=== PATIENT | male | born 1965 | race Caucasian/White ===

== ENCOUNTER 2018-11-17 13:51 | Emergency (ER) | payer BC ==
[~2018-11-17] VITALS: Ht 188 cm; Wt 131.5 kg
[2018-11-17 14:28] LABS: ABSOLUTE BASOPHILS 0.1 thou/uL (0.0-0.2); ABSOLUTE EOSINOPHILS 0.2 thou/uL (0.0-0.7); ABSOLUTE LYMPHOCYTES 1.5 thou/uL (0.8-5.3); ABSOLUTE MONOCYTES 0.6 thou/uL (0.0-1.2); ABSOLUTE NEUTROPHILS 4.8 thou/uL (1.6-8.1); BASOPHILS 0.8 %; EOSINOPHILS 2.3 %; HEMATOCRIT 43.9 % (42.0-52.0); HEMOGLOBIN 15.4 gm/dL (14.0-18.0); LYMPHOCYTES 21.4 %; MCH 30.3 pg (26.0-34.0); MCHC 35.1 g/dL (28.0-37.0); MCV 86.2 fL (80.0-100.0); MONOCYTES 8.1 %; MPV 6.7 fl. (7.2-11.1); NUCLEATED RBCS 0 /100WBC; PLATELET COUNT* 241 thou/uL (150-400); POLYS 67.4 %; RBC 5.09 mil/uL (4.50-6.00); RDW-CV 13.2 % (10.5-14.5); WBC 7.2 thou/uL (4.0-11.0)
[2018-11-17 14:38] LABS: APTT 29.8 Seconds (25.0-31.3); PROTIME 10.2 Seconds (9.20-11.50)
[2018-11-17 14:41] LABS: ALBUMIN 3.8 g/dL (3.4-5.0); CALCIUM 9.3 mg/dL (8.5-10.1); POTASSIUM 3.9 mmol/L (3.5-5.1); TOTAL BILIRUBIN 0.7 mg/dL (<0.1-1.0); TOTAL PROTEIN 7.2 g/dL (6.4-8.2)
[2018-11-17] MEDS ORDERED: ROBAXIN500 MG PO (15:41)
[2018-11-17 15:53] VITALS: BP 147/86
== END 2018-11-17 15:54 | disposition home or self-care (01) ==
LOC: M.ERS 13:51
PROVIDERS: Nurse Practitioner Family
DX: S00.83XA Contusion of other part of head, initial encounter (principal); V59.49XA Driver of pick-up truck or van injured in collision with other motor vehicles in traffic accident, initial encounter; Y93.89 Activity, other specified; Y92.89 Other specified places as the place of occurrence of the external cause; Y99.8 Other external cause status

== ENCOUNTER → 2019-03-08 | Outpatient (CLI) | payer BC ==
[~2019-03-08] MED LIST: ROBAXIN500 MG PO
--- NOTE | 2019-03-08 16:51 | EXE ---
[place] [address] STRESS ECHOCARDIOGRAM Name: CHAD RINALDI Room: [facility]#: [id number] Admission: 03/08/19 Attend Phys: Jaky Khan DO Discharge: Date of : 61 Date of Service: 03/08/19 1650 Report #: [id number] THIS REPORT FOR: //name// APPROVED REPORT Study performed: 03/08/2019 15:03:22 Exam: Dobutamine Stress Echo Indication: Chest pain , Near Syncope Patient Location: Out-Patient Stress Nurse: Tomasa Chi RN Supervising Physician: Benjamin Jarrett MD Ht: 6 ft 2 in HR: 78 bpm BP: 124/87 mmHg Medical History Cardiac Risk Factors: FHX of CAD, Tobacco History (Former) Procedure The patient underwent a Pharmacological Stress Test using Dobutamine. Blood pressure, heart rate, and EKG were monitored. An Echocardiogram was performed by county program technician in four stages in quad fashion. At peak stress, four selected images were obtained and placed side by side with resting images for comparison. Echo Enhancing Agent Indication: Endocardial border delineation Agent(s) / Amount(s) Used: Optison 10 cc Stress Test Details Stress Test: Pharmacological Stress Test using Dobutamine. Reason for pharmacologic stress test: physical limitation. HR Resting HR: 78 bpm Max Heart Rate (APMHR): 165 bpm Max HR Achieved: 138 bpm Target HR (85% APMHR): 140 bpm % of APMHR: 83 Recovery HR: 92 bpm HR response to stress: Normal HR response to stress BP Resting BP: 124/87 mmHg Max BP: 185/82 [place] [address] STRESS ECHOCARDIOGRAM Name: CHAD RINALDI TAHMINA Room: [facility]#: [id number] Admission: 03/08/19 Attend Phys: Jaky Khan DO Discharge: Date of : 61 Date of Service: 03/08/19 1650 Report #: [id number] Recovery BP: 132/75 mmHg BP response to stress: Normal blood pressure response to stress. ECG Resting ECG: Sinus Rhythm Stress ECG: Sinus Tachycardia ST Change: None Arrhythmia: VPC's Recovery ECG: Sinus Rhythm Recovery ST Change: None Recovery Arrhythmia: None Clinical Reason for Termination: Completed protocol Patient tolerated dobutamine infusion without specific cardiac. Heart rate was achieved. Stress ECG Conclusion The baseline 12-lead EKG showed sinus rhythm without significant ST or T-wave abnormality. EKGs obtained during and post dobutamine infusion showed sinus rhythm and sinus tachycardia with no significant ST or T wave changes when compared to baseline. There were unifocal premature ventricular contractions noted. Pre-Stress Echo The resting Echocardiogram showed normal left ventricular contractility with an estimated Ejection Fraction of about 55-60%. The resting echocardiogram demonstrated normal wall motion in all wall segments. Post-Stress Echo The stress Echocardiogram showed normal left ventricular contractility with an estimated Ejection Fraction of about >70%. Compared to rest, there were no stress-induced wall motion abnormalities. Conclusion Clinical Response: Non-ischemic Stress ECG Response: Non-ischemic Stress Echo Images: Non-ischemic This dobutamine stress echocardiogram shows no EKG or echocardiographic evidence of stress-induced ischemia. Left ventricular systolic function is normal at baseline and NORMALLY with dobutamine stress. This is a low risk study[place] [address] STRESS ECHOCARDIOGRAM Name: CHAD RINALDI TAHMINA Room: [facility]#: [id number] Admission: 03/08/19 Attend Phys: Jaky Khan DO Discharge: Date of : 61 Date of Service: 03/08/191649 Report #: [id number] Study Quality: Good <Conclusion> This dobutamine stress echocardiogram shows no EKG or echocardiographic evidence of stress-induced ischemia. Left ventricular systolic function is normal at baseline and NORMALLY with dobutamine stress. This is a low risk study. <ELECTRONICALLY SIGNED> By: Avni Galvez MD, [facility] 03/08/191649 49 165 Avni Galvez MD, FACC /INF
== END ==
LOC: M.CRD 14:33
DX: R07.9 Chest pain, unspecified (principal); R55 Syncope and collapse; R00.0 Tachycardia, unspecified; Z79.899 Other long term (current) drug therapy